=== PATIENT | female | born 1950 | race Caucasian/White ===

== ENCOUNTER 2017-10-02 19:31 | Emergency (ER) | payer BC, MEDICARE ==
--- NOTE | 2017-10-02 21:32 | RAD ---
INDICATION: Pain and swelling. Remote history of DVT COMPARISON: None TECHNIQUE: Duplex interrogation of the Lowerextremity was performed. FINDINGS: Deep veins: The common femoral, great saphenous, profunda femoris, proximal, mid, and distal deep femoral, popliteal, posterior tibial, and peroneal veins are patent. There is normal compressibility, augmentation, and phasic flow. There is a small amount of echogenic material at the level of the common femoral vein consistent with remote thrombus with recanalization. Superficial veins: There are no findings of superficial thrombophlebitis. Popliteal fossa:There is no evidence of a popliteal cyst. Soft tissues:There are no soft tissue abnormalities. IMPRESSION: No evidence of deep venous thrombosis
[2017-10-02] MEDS: Ibuprofen TAB* 600 MG PO ONE ×2 (22:48→23:13)
[2017-10-02 23:08] VITALS: BP 181/90
--- NOTE | 2017-10-02 23:14 | ED ---
Edwin More Tiffany, scribed for Elias Sung on 10/02/17 at 2237 . Lower Extremity - HPI Summary HPI Summary: This patient is a 67 year old F presenting to [facility] accompanied by female with a chief complaint of left leg pain since this month. The patient rates the pain 8/10 in severity. Symptoms aggravated by nothing. Symptoms alleviated by nothing. Patient has a history of DVT in this extremity in the past. Pt denies recent travel and injury. - History of Current Complaint Chief Complaint: EDExtremityLower Stated Complaint: LT LEG SWOLLEN AND PAIN Time Seen by Provider: 10/02/17 22:24 Hx Obtained From: Patient Onset/Duration: Weeks - 4 weeks Severity Currently: Severe Pain Intensity: 8 Pain Scale Used: 0-10 Numeric Timing: Constant Aggravating Factor(s): Nothing Alleviating Factor(s): Nothing - Allergies/Home Medications Allergies/Adverse Reactions: Allergies Allergy/AdvReac Type Severity Reaction Status Date / Time Sulfa Antibiotics Allergy Intermediate Rash Verified 10/02/17 19:51 Amoxicillin Allergy Unknown Verified 10/02/17 19:49 Reaction Details PMH/Surg Hx/FS Hx/Imm Hx Previously Healthy: No Endocrine/Hematology History: Reports: Hx Thyroid Disease - hypo Cardiovascular History: Reports: Hx Hypertension Musculoskeletal History: Denies: Hx Osteoporosis - Cancer History Hx Chemotherapy: No Hx Radiation Therapy: No Infectious Disease History: Yes Infectious Disease History: Reports: Hx Hepatitis - when younger, not sure which type Denies: Traveled Outside the [place] in Last 30 Days - Family History Known Family History: Positive: Other - Clots - Social History Alcohol Use: None Hx Substance Use: No Substance Use Type: Reports: None Hx Tobacco Use: Yes Smoking Status (MU): Heavy Every Day Tobacco Smoker Type: Cigarettes Amount Used/How Often: 1/2 ppd Length of Time of Smoking/Using Tobacco: 50 yrs Have You Smoked in the Last Year: Yes Review of Systems Negative: Fever Positive: Other - Left leg pain All Other Systems Reviewed And Are Negative: Yes Physical Exam - Summary Physical Exam Summary: Appearance: Well appearing, no pain distress Skin: warm, dry, reflects adequate perfusion Head/face: normal Eyes: EOMI, PHILIP ENT: normal Neck: supple, non-tender Respiratory: CTA, breath sounds present Cardiovascular: RRR, pulses symmetrical Abdomen: non-tender, soft Bowel: present Musculoskeletal: mild tenderness over medial aspect of left thigh, no neurovascular deficit Neuro: normal, sensory motor intact, A&Ox3 Triage Information Reviewed: Yes Vital Signs On Initial Exam: Initial Vitals Temp Pulse Resp BP Pulse Ox 97.9 F 92 16 178/103 95 10/02/17 19:40 10/02/17 19:40 10/02/17 19:40 10/02/17 19:40 10/02/17 19:40 Vital Signs Reviewed: Yes Diagnostics - Vital Signs Vital Signs Temp Pulse Resp BP Pulse Ox 10/02/17 21:40 97.6 F 93 16 181/93 95 10/02/17 19:40 97.9 F 92 16 178/103 95 - Laboratory Lab Statement: Any lab studies that have been ordered have been reviewed, and results considered in the medical decision making process. - Additional Comments Diagnostic Additional Comments: Venous Doppler study reveals, per radiologist, No evidence of deep venous thrombosis. ED physician has reviewed this radiology report. Lower Extremity Course/Dx - Course Course Of Treatment: This patient is a 67 year old F presenting to [facility] accompanied by female with a chief complaint of left leg pain since this month. Venous Doppler study reveals, per radiologist, No evidence of deep venous thrombosis. In the ED course the patient was given Motrin. Patient will be discharged with prescription for Motrin and Prilosec and follow up from PCP. The patient is agreeable with this plan. - Diagnoses Differential Diagnosis/HQI/PQRI: Positive: Cellulitis, DVT, Infection, Strain Provider Diagnoses: left leg superficial thrombocytosis Discharge - Discharge Plan Condition: Stable Disposition: HOME Prescriptions: Ibuprofen TAB* [Motrin TAB* 600 MG] 600 mg PO Q8H PRN #21 tab MDD 3 PRN Reason: Pain Omeprazole CAP* [Prilosec CAP* 20 MG] 20 mg PO DAILY #30 cap.dr Referrals: Nidia Ibrahim PA [Primary Care Provider] - Additional Instructions: Follow up with PCP in 3 days. You are advised to get a repeat ultrasound in 2-3 weeks if pain is still there. Return to ED if current symptoms worsen, or new symptoms develop. The documentation as recorded by the Edwin parada Tiffany accurately reflects the service I personally performed and the decisions made by , Elias Sung.
== END 2017-10-02 23:06 | disposition home or self-care (01) ==
LOC: ED 19:31
DX: D47.3 Essential (hemorrhagic) thrombocythemia (principal); M79.605 Pain in left leg; E03.9 Hypothyroidism, unspecified; I10 Essential (primary) hypertension; Z86.718 Personal history of other venous thrombosis and embolism; Z88.1 Allergy status to other antibiotic agents; Z88.2 Allergy status to sulfonamides; F17.210 Nicotine dependence, cigarettes, uncomplicated
CPT/HCPCS: 99282; A9270-GY